=== PATIENT | female | born 1995 | race Caucasian/White ===

== ENCOUNTER 2016-08-09 15:17 | Emergency (ER) | payer SELFPAY ==
[~2016-08-09] VITALS: Ht 165.1 cm; Wt 79.0 kg
[~2016-08-09 15:17] MED LIST: AMOX875T20 PO; IBUP-238 PO; PRED20 PO
[2016-08-09 15:20] VITALS: BP 128/84; PULSE 93; RESP 16; TEMP 98.6; O2SAT 100
[2016-08-09] MEDS ORDERED: SODIUM CHLORIDE 0.9% FLUSH 5 ML FLUSH IVF PRN (16:00)
[2016-08-09 16:24] LABS: AUTOMATED NEUTROPHIL # 6.3 TH/MM3 (1.8-7.7); BASOPHIL # 0.4 TH/MM3 (0-0.2); BASOPHIL % 3.8 % (0.0-2.0); EOSINOPHIL # 0.3 TH/MM3 (0-0.4); EOSINOPHIL % 3.3 % (0.0-4.0); HEMATOCRIT 38.1 % (35.0-46.0); HEMO FLAGS DIFF FINAL; LYMPHOCYTE # 2.7 TH/MM3 (1.0-4.8); MEAN CELL VOLUME 88.8 FL (80.0-100.0); MEAN CORPUSCULAR HEMOGLOBIN 29.7 PG (27.0-34.0); MEAN CORPUSCULAR HGB CONC 33.4 % (32.0-36.0); MONO % 7.4 % (0.0-8.0); NEUT % 59.5 % (16.0-70.0); PLATELET COUNT 218 TH/MM3 (150-450); RED BLOOD COUNT 4.29 MIL/MM3 (4.00-5.30); RED CELL DISTRIBUTION WIDTH 12.1 % (11.6-17.2); WHITE BLOOD COUNT 10.5 TH/MM3 (4.0-11.0)
[2016-08-09 16:27] LABS: BLOOD, URINE NEG (NEG); GLUCOSE,URINE NEG (NEG); KETONE, URINE NEG (NEG); NITRITE,URINE NEG (NEG); PH, URINE 5.5 (5.0-8.5)
[2016-08-09 16:37] LABS: URINE COLOR STRAW (YELLW/STRAW)
[2016-08-09 16:39] LABS: SQUAMOUS EPITHELIAL CELL URINE 0-5 /hpf (0-5)
[2016-08-09 16:40] LABS: BACTERIA, URINE OCC /hpf
[2016-08-09 16:43] LABS: COMMENT (UR) CULT NOT INDICATED; CULTURE IF INDICATED CULT NOT INDICATED
[2016-08-09 16:50] VITALS: BP 123/68; PULSE 71; RESP 16; O2SAT 100
[2016-08-09 17:04] LABS: APTT (PATIENT) 25.2 SEC (24.3-30.1); INTERNATIONAL NORMALIZED RATIO 0.9 RATIO; PROTHROMBIN TIME - PATIENT 10.2 SEC (9.8-11.6)
[2016-08-09 17:19] LABS: BLOOD UREA NITROGEN 11 MG/DL (7-18)
[2016-08-09 17:20] LABS: ALKALINE PHOSPHATASE 48 U/L (45-117); GLOMERULAR FILTRATION RATE 84 ML/MIN (>89)
[2016-08-09 17:21] LABS: ALT (GPT) 44 U/L (10-53); ANION GAP 7 MEQ/L (5-15); AST (GOT) 22 U/L (15-37); BICARBONATE 26.8 MEQ/L (21.0-32.0); CHLORIDE 109 MEQ/L (98-107); SODIUM (NA) 143 MEQ/L (136-145); TOTAL BILIRUBIN ADULT 0.3 MG/DL (0.2-1.0)
--- NOTE | 2016-08-09 17:57 | PD ---
HPI Chief Complaint: GI Complaint Time Seen by Provider: 17:30 Travel History International Travel<30 days: No Contact w/Intl Traveler<30days: No Traveled to known affect area: No History of Present Illness HPI Patient is a 21-year-old white female who presents to emergency room with complaints of blood in stool for the past 6 months. Patient reports that she has been noticing increased blood in her stool with every bowel movement every day. Patient reports that sometimes her blood as dark, reports that sometimes her blood as bright red, reports that sometimes her bloody stools are associated with soft stools, reports that sometimes she may have hard stools with this. Patient reports that today, she noticed increased blood in her stools and reports that she felt a little lightheaded. Patient denied abdominal pain, denies nausea or vomiting. Patient reports that she was concerned that her hemoglobin was low, reports that she came to the emergency room for blood work. Reports "I just wanted to see what my hemoglobin was." PFSH Past Medical History Diminished Hearing: No Immunizations Current: Yes Tetanus Vaccination: Unknown ?: Not LMP: 3 WEEKS Family History Family History: Negative Social History Alcohol Use: No Tobacco Use: Yes (QUIT YESTERDAY) Substance Use: No Allergies-Medications (Allergen,Severity, Reaction): Coded Allergies: No Known Allergies (Verified , 08/09/16) Reported Meds & Prescriptions Reported Meds & Active Scripts Active No Active Prescriptions or Reported Medications Review of Systems General / Constitutional: No: Fever Eyes: No: Visual changes HENT: No: Headaches Cardiovascular: No: Chest Pain or Discomfort Respiratory: No: Shortness of Breath Gastrointestinal: Positive: Hematochezia, No: Nausea, Vomiting, Diarrhea, Abdominal Pain, Constipation, Changes in Bowel Habits Genitourinary: No: Dysuria Musculoskeletal: No: Pain Skin: No Rash Neurologic: No: Weakness Psychiatric: No: Depression Endocrine: No: Polydipsia Hematologic/Lymphatic: No: Easy Bruising Physical Exam Narrative GENERAL: No acute distress, nontoxic SKIN: Warm and dry. HEAD: Atraumatic. Normocephalic. EYES: Pupils equal and round. No scleral icterus. No injection or drainage. ENT: No nasal bleeding or discharge. Mucous membranes pink and moist. NECK: Trachea midline. No JVD. CARDIOVASCULAR: Regular rate and rhythm. No murmur appreciated. RESPIRATORY: No accessory muscle use. Clear to auscultation. Breath sounds equal bilaterally. GASTROINTESTINAL: Abdomen soft, non-tender, nondistended. Patient adamantly refuses rectal exam. MUSCULOSKELETAL: No obvious deformities. No clubbing. No cyanosis. No edema. NEUROLOGICAL: Awake and alert. No obvious cranial nerve deficits. Motor grossly within normal limits. Normal speech. PSYCHIATRIC: Appropriate mood and affect; insight and judgment normal. Data Data Last Documented VS Vital Signs Date Time Temp Pulse Resp B/P Pulse Ox O2 Delivery O2 Flow Rate FiO2 08/09/16 16:50 71 16 123/68 100 Room Air 08/09/16 15:20 98.6 Orders Complete Blood Count With Diff (08/09/16 15:56) Comprehensive Metabolic Panel (08/09/16 15:56) Prothrombin Time / Inr (Pt) (08/09/16 15:56) Act Partial Throm Time (Ptt) (08/09/16 15:56) Urinalysis - C+S If Indicated (08/09/16 15:56) Iv Access Insert/Monitor (08/09/16 15:56) Sodium Chloride 0.9% Flush (Ns Flush) (08/09/16 16:00) Ed Urine Pregnancytest Poc (08/09/16 15:56) Labs Laboratory Tests Test 08/09/16 08/09/16 15:40 16:10 Urine Collection Type Urine Color STRAW Urine Turbidity CLEAR Urine pH 5.5 Urine Specific [place] 1.005 Urine Protein NEG mg/dL Urine Glucose (UA) NEG mg/dL Urine Ketones NEG mg/dL Urine Occult Blood NEG Urine Nitrite NEG Urine Bilirubin NEG Urine Leukocyte Esterase NEG Urine Squamous Epithelial 0-5 /hpf Cells Urine Amorphous Sediment SMALL Urine Bacteria OCC /hpf Microscopic Urinalysis Comment CULT NOT INDICATED White Blood Count 10.5 TH/MM3 Red Blood Count 4.29 MIL/MM3 Hemoglobin 12.7 GM/DL Hematocrit 38.1 % Mean Corpuscular Volume 88.8 FL Mean Corpuscular Hemoglobin 29.7 PG Mean Corpuscular Hemoglobin 33.4 % Concent Red Cell Distribution Width 12.1 % Platelet Count 218 TH/MM3 Mean Platelet Volume 7.8 FL Neutrophils (%) (Auto) 59.5 % Lymphocytes (%) (Auto) 26.0 % Monocytes (%) (Auto) 7.4 % Eosinophils (%) (Auto) 3.3 % Basophils (%) (Auto) 3.8 % Neutrophils # (Auto) 6.3 TH/MM3 Lymphocytes # (Auto) 2.7 TH/MM3 Monocytes # (Auto) 0.8 TH/MM3 Eosinophils # (Auto) 0.3 TH/MM3 Basophils # (Auto) 0.4 TH/MM3 CBC Comment DIFF FINAL Differential Comment Prothrombin Time 10.2 SEC Prothromb Time International 0.9 RATIO Ratio Activated Partial 25.2 SEC Thromboplast Time Sodium Level 143 MEQ/L Potassium Level 4.0 MEQ/L Chloride Level 109 MEQ/L Carbon Dioxide Level 26.8 MEQ/L Anion Gap 7 MEQ/L Blood Urea Nitrogen 11 MG/DL Creatinine 0.85 MG/DL Estimat Glomerular Filtration 84 ML/MIN Rate Random Glucose 99 MG/DL Calcium Level 7.9 MG/DL Total Bilirubin 0.3 MG/DL Aspartate Amino Transf 22 U/L (AST/SGOT) Alanine Aminotransferase 44 U/L (ALT/SGPT) Alkaline Phosphatase 48 U/L Total Protein 7.0 GM/DL Albumin 3.4 GM/DL MDM Medical Decision Making Medical Screen Exam Complete: Yes Emergency Medical Condition: Yes Interpretation(s) Vital Signs Date Time Temp Pulse Resp B/P Pulse Ox O2 Delivery O2 Flow Rate FiO2 08/09/16 16:50 71 16 123/68 100 Room Air 08/09/16 15:20 98.6 93 16 128/84 100 CBC & BMP Diagram 08/09/16 16:10 Differential Diagnosis GI bleed, hemorrhoids, anemia, symptomatic anemia Narrative Course Patient is a 21-year-old female who presents to emergency room for evaluation of GI bleed. She reports that she has been noticing blood in her stool every day after a bowel movement for the past 6 months. Patient reports that sometimes her blood as dark, sometimes it is bright red, reports that sometimes she has hard stools and sometimes she has soft stools. Patient reports that she felt lightheaded and dizzy today and wanted to make sure her hemoglobin was normal. Patient with no complaints in the emergency room. Patient well-appearing. Vital Signs Date Time Temp Pulse Resp B/P Pulse Ox O2 Delivery O2 Flow Rate FiO2 08/09/16 16:50 71 16 123/68 100 Room Air 08/09/16 15:20 98.6 93 16 128/84 100 Patient with normal vital signs. CBC & BMP Diagram 08/09/16 16:10 Hemoglobin is 12.7, patient refuses rectal exam at this time. Patient understands that I cannot diagnose GI bleed without performing a rectal exam. Patient understands this, reports "I just want to have my hemoglobin checked to make sure I'm not anemic." Signs and symptoms of when to return to the emergency room was reviewed patient in detail. She reports that she will follow -up with a GI doctor and understands that if symptoms progress or worsen, she is to return to the emergency room. Diagnosis Primary Impression: GI bleed Qualified Code: K92.2 - Gastrointestinal hemorrhage, unspecified gastrointestinal hemorrhage type Patient Instructions: General Instructions Additional Instructions: Please follow-up with a paper processing machine helper as soon as possible Return to the emergency room as needed Please return to the emergency room if symptoms progress or worsen Scripts No Active Prescriptions or Reported Meds Disposition: 01 DISCHARGE HOME Condition: Stable Anya Mo DO Aug 09, 2016 17:57
== END 2016-08-09 18:04 | disposition home or self-care (01) ==
LOC: PHED 15:17
DX: Z87.891 Personal history of nicotine dependence (principal); K92.2 Gastrointestinal hemorrhage, unspecified
CPT/HCPCS: 80053; 81001; 84703; 85025; 85610; 85730; 99284

== ENCOUNTER 2017-03-29 07:11 | Emergency (ER) | payer SELFPAY ==
[~2017-03-29] VITALS: Ht 165.1 cm; Wt 81.0 kg
[2017-03-29 07:13] VITALS: BP 141/81; PULSE 81; RESP 16; TEMP 100.1; O2SAT 100
--- NOTE | 2017-03-29 07:26 | PD ---
HPI Chief Complaint: ENT Complaint Time Seen by Provider: 07:16 Travel History International Travel<30 days: No Contact w/Intl Traveler<30days: No Traveled to known affect area: No History of Present Illness HPI The patient is a 21-year-old female who presents to the emergency department for 1 day history of sore throat. The patient states her sore throat started yesterday, she now complains of subjective fevers, chills, sweats , and anterior cervical lymphadenopathy. She denies any rash, body aches, cough , nausea, vomiting, or abdominal pain. The patient has been taking over-the- counter TheraFlu with minimal relief of her symptoms. The patient denies any sick contacts at home. Symptoms are mild to moderate, there are no alleviating or exacerbating factors. PFSH Past Medical History Medical History: Denies Significant Hx Diminished Hearing: No Immunizations Current: Yes ?: Not LMP: 2 WEEKS Past Surgical History Surgical History: No Previous Surgery Social History Alcohol Use: No Tobacco Use: Yes (QUIT YESTERDAY) Substance Use: No Allergies-Medications (Allergen,Severity, Reaction): Coded Allergies: No Known Allergies (Verified , 03/29/17) Reported Meds & Prescriptions Reported Meds & Active Scripts Active No Active Prescriptions or Reported Medications Review of Systems General / Constitutional: Positive: Fever, Chills HENT: Positive: Sore Throat, Neck Pain Respiratory: No: Cough Gastrointestinal: No: Nausea, Vomiting, Abdominal Pain Musculoskeletal: No: Myalgias, Arthralgias Skin: No Rash Physical Exam Narrative GENERAL: Awake, alert, pleasant 21-year-old female appears her stated age and is in no acute respiratory distress. SKIN: Focused skin assessment warm, diaphoretic over the face.. HEAD: Atraumatic. Normocephalic. EYES: Pupils equal and round. No scleral icterus. No injection or drainage. ENT: No nasal bleeding or discharge. Oropharynx reveals enlarged and erythematous tonsils bilaterally with white exudate. NECK: Trachea midline. No JVD. Anterior cervical lymphadenopathy is mobile but tender. CARDIOVASCULAR: Regular rate and rhythm. No murmur appreciated. RESPIRATORY: No accessory muscle use. Clear to auscultation. Breath sounds equal bilaterally. MUSCULOSKELETAL: No obvious deformities. No clubbing. No cyanosis. No edema. NEUROLOGICAL: Awake and alert. No obvious cranial nerve deficits. Motor grossly within normal limits. Normal speech. PSYCHIATRIC: Appropriate mood and affect; insight and judgment normal. Data Data Last Documented VS Vital Signs Date Time Temp Pulse Resp B/P (MAP) Pulse Ox O2 Delivery O2 Flow Rate FiO2 03/29/17 07:13 100.1 81 16 141/81 (101) 100 Orders Orders Penicillin G Benzathine Inj (Bicillin L- (03/29/17 07:30) Dexamethasone Inj (Decadron Inj) (03/29/17 07:30) Ibuprofen (Advil) (03/29/17 07:30) MDM Medical Decision Making Medical Screen Exam Complete: Yes Emergency Medical Condition: Yes Medical Record Reviewed: Yes Differential Diagnosis Differential diagnosis includes strep pharyngitis, tonsillitis, mononucleosis, adenovirus, viral syndrome, URI, influenza. Narrative Course The patient's physical examination is consistent with exudative tonsillitis, most likely strep a pharyngitis versus mononucleosis. I do discussion with the patient regarding treatment of pen VK 4 times a day for 10 days versus one injection of Bicillin L-A with Decadron. The patient prefers an injection, therefore, the patient was administered Bicillin LA 1.2 million units IM and Decadron 8 mg IM. The patient was also administered ibuprofen 600 mg orally. She will be provided a work excuse for 2 days. She is advised to alternate Tylenol and Motrin for fever and plenty of fluids to stay hydrated. Diagnosis Primary Impression: Exudative tonsillitis Patient Instructions: General Instructions Additional Instructions: Alternate Tylenol and Motrin for pain and fever. Plenty of fluids to stay hydrated. Work excuse for 2 days. Follow-up with your primary physician. Return if symptoms worsen or progress. Med/Other Pt SpecificInfo: No Change to Meds Scripts No Active Prescriptions or Reported Meds Disposition: DISCHARGE HOME Condition: Stable Red Bailey MD Mar 29, 2017 07:26
[2017-03-29] MEDS ORDERED: PENICILLIN G BENZATHINE 1,200,000 UNITS/2 ML SYRINGE IM ONE (07:30)
[2017-03-29] MEDS ORDERED: DEXAMETHASONE SOD PHOS 4 MG/ML VIAL IM ONE (07:30)
[2017-03-29] MEDS ORDERED: IBUPROFEN 200 MG TAB PO ONE (07:30)
== END 2017-03-29 08:03 | disposition home or self-care (01) ==
LOC: PHED 07:11
DX: J03.90 Acute tonsillitis, unspecified (principal)
CPT/HCPCS: 96372; 99284; J0561; J1100

== ENCOUNTER 2017-12-21 14:37 | Emergency (ER) | payer BC ==
[~2017-12-21] VITALS: Ht 165.1 cm; Wt 82.0 kg
[2017-12-21 14:44] VITALS: BP 144/83; PULSE 74; RESP 16; TEMP 98.6; O2SAT 100
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
[2017-12-21 15:34] LABS: AUTOMATED NEUTROPHIL # 6.9 TH/MM3 (1.8-7.7); BASOPHIL % 0.4 % (0.0-2.0); EOSINOPHIL # 0.3 TH/MM3 (0-0.4); EOSINOPHIL % 3.4 % (0.0-4.0); HEMATOCRIT 41.5 % (35.0-46.0); HEMOGLOBIN 14.1 GM/DL (11.6-15.3); LYMPH % 24.4 % (9.0-44.0); LYMPHOCYTE # 2.5 TH/MM3 (1.0-4.8); MEAN CELL VOLUME 90.7 FL (80.0-100.0); MEAN CORPUSCULAR HEMOGLOBIN 30.9 PG (27.0-34.0); MEAN PLATELET VOLUME 8.2 FL (7.0-11.0); MONO % 5.8 % (0.0-8.0); MONOCYTE # 0.6 TH/MM3 (0-0.9); PLATELET COUNT 286 TH/MM3 (150-450); RED BLOOD COUNT 4.57 MIL/MM3 (4.00-5.30); WHITE BLOOD COUNT 10.4 TH/MM3 (4.0-11.0)
[2017-12-21 15:42] LABS: AMORPHOUS SEDIMENT, URINE FEW; BACTERIA, URINE FEW /hpf; BILIRUBIN, URINE NEG (NEG); BLOOD, URINE MOD (NEG); GLUCOSE,URINE NEG (NEG); KETONE, URINE NEG (NEG); MUCUS URINE FEW /lpf (OCC); NITRITE,URINE NEG (NEG); SQUAMOUS EPITHELIAL CELL URINE 13 /hpf (0-5); URINE COLOR YELLOW (YELLW/STRAW); URINE LEUKOCYTE ESTERASE LARGE (NEG); WHITE BLOOD CELL CLUMPS FEW
[2017-12-21 15:42] LABS: ALBUMIN 3.6 GM/DL (3.4-5.0); ALT (GPT) 27 U/L (10-53); AST (GOT) 19 U/L (15-37); BICARBONATE 26.2 MEQ/L (21.0-32.0); BLOOD UREA NITROGEN 7 MG/DL (7-18); CALCIUM 8.7 MG/DL (8.5-10.1); CHLORIDE 110 MEQ/L (98-107); CREATININE 0.91 MG/DL (0.50-1.00); GLOMERULAR FILTRATION RATE 77 ML/MIN (>89); GLUCOSE,RANDOM 94 MG/DL (74-106); SODIUM (NA) 143 MEQ/L (136-145)
[2017-12-21 15:52] LABS: ALKALINE PHOSPHATASE 55 U/L (45-117); TOTAL BILIRUBIN ADULT 0.3 MG/DL (0.2-1.0); TOTAL PROTEIN 7.3 GM/DL (6.4-8.2)
[2017-12-21] MEDS ORDERED: MACR100C2 PO (17:48)
[2017-12-21] MEDS ORDERED: NITROFURANTOIN MONOHYD MACROCR 100 MG CAP PO SCH (18:00)
[2017-12-21 18:14] VITALS: BP 132/72; PULSE 70; RESP 18; O2SAT 99
--- NOTE | 2017-12-21 18:27 | PD ---
History of Present Illness Chief Complaint: Psychiatric Symptoms Time Seen by Provider: 17:45 Travel History International Travel<30 Days: No Contact w/Intl Traveler<30days: No Known affected area: No Legal Status Legal Status: Harvey Act Harvey Act Signed By: Gigi Jamison Harvey Act Comment: officer elisa hill [id number] History of Present Illness: History of Present Illness HPI 22-year-old, single, female with no previous psychiatric history brought in under the Harvey act initiated by law enforcement with reports of suicidal ideation. The report alleges that the patient was arguing with her boyfriend when she reportedly held a gun to her head. 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 " I told him to leave me alone that I was going to go to [facility]". I just wanted him to leave me alone". She denies any previous suicide attempts. Does have a history of self injurious behavior but has not engaged in cutting in the past 1 and 1/2 year. EMR is reviewed. No previous contact with [facility]. Current toxicology is positive for amphetamines and cannabinoids. Patient currently with UTI. Patient is seen. She is alert and oriented. Calm and cooperative. Appropriate eye contact. Full affect. Speech is clear, logical of normal rate and tone. No mario or hypomania. No evidence of any hallucinations. I can elicit no delusions or paranoia. No significant objective clinical signs of depression. She denies suicidal or homicidal ideation, intent or plan. Remainder of review of system is negative. In terms of substance abuse she admits to using Adderall to help her focus at work. As well as smoking cannabis. Telephone call to her mother, Azul at [phone]. She has no concerns if her daughter is released. They live near each other and speak every day. PFSH Past Medical History Medical History: Denies Significant Hx Diminished Hearing: No Immunizations Current: Yes Tetanus Vaccination: Unknown Influenza Vaccination: No ?: Unknown Past Surgical History Surgical History: No Previous Surgery Psychiatric History Psychiatric History Hx Psychiatric Treatment: No previous psychiatric history. No previous suicide attempt. Patient has a history of cutting but last engaged in this behavior when a half years ago. She has been seeing a therapist by the name of Erinn through the employment assistance program. History of Inpatient Treatment: Yes Guns or firearms in home: No (They were taken by the police) Social History Born and raised in [place]. Patient is attending [employer] studying pharmacy. She works at the [employer]. She lives by herself. Was involved with a boyfriend for the past 4 months and broke up yesterday. Hx Alcohol Use: No Hx Tobacco Use: Yes (1 PPD) Hx Substance Use: Yes (MARIJUANA) Substance Use Type: Marijuana, Amphetamines-Stimulants Hx of Substance Use Treatment: No Family Psychiatric History Negative Allergies-Medications (Allergen,Severity, Reaction): Coded Allergies: No Known Allergies (Verified Adverse Reaction, Unknown, 12/21/17) Reported Meds & Prescriptions Reported Meds & Active Scripts Active Macrobid (Nitrofurantoin Monohydrate Macrocrystals) 100 Mg Capsule 100 Mg PO BID 7 Days Review of Systems Except as stated in HPI: all other systems reviewed are Neg Mental Status Examination Appearance: Appropriate (In hospital [facility]) Consciousness: Alert Orientation: x4 Motor Activity: Normal gait Speech: Unremarkable Language: Adequate Fund of Knowledge: Adequate Attention and Concentration: Adequate Memory: Unremarkable Mood: Appropriate Affect: Appropriate Thought Process & Associations: Intact, Logical, Goal directed Thought Content: Appropriate Hallucination Type: None Delusion Type: None Suicidal Ideation: No Suicidal Plan: No Suicidal Intention: No Homicidal Ideation: No Homicidal Plan: No Homicidal Intention: No Insight: Adequate Judgment: Adequate [facility] Medical Decision Making Medical Record Reviewed: Yes Assessment/Plan 22-year-old, single, female with no previous psychiatric history brought in under the Harvey act initiated by law enforcement with reports of suicidal ideation. The report alleges that the patient was arguing with her boyfriend when she reportedly held a gun to her head. 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 " I told him to leave me alone that I was going to go to [facility]". I just wanted him to leave me alone". She denies any previous suicide attempts. Patient was monitor and secure environment and presented no behavioral concerns and no suicidality. No significant symptoms of depression or anxiety are noted. The patient is future oriented with goals to complete her education and become a pharmacist. She has good family support and speaks to her mother every day. She is requesting to be discharge and does not present Criteria to remain under the Harvey act. She is provided psychoeducation. She will follow up with her outpatient therapist. The Harvey act as lifted. Psychiatrically stable for discharge from the ED. Orders Orders Complete Blood Count With Diff (12/21/17 14:49) Comprehensive Metabolic Panel (12/21/17 14:49) Thyroid Stimulating Hormone (12/21/17 14:49) Urinalysis - C+S If Indicated (12/21/17 14:49) Ed Urine Pregnancytest Poc (12/21/17 14:49) Psych Screen (12/21/17 14:49) Drug Screen, Random Urine (12/21/17 14:49) Alcohol (Ethanol) (12/21/17 14:49) Urine Culture (12/21/17 15:10) Nitrofurantoin Monohyd Macrocr (Macrobid (12/21/17 18:00) Diet Regular Basic (12/21/17 Dinner) Results Vital Signs Date Time Temp Pulse Resp B/P (MAP) Pulse Ox O2 Delivery O2 Flow Rate FiO2 12/21/17 18:14 70 18 132/72 (92) 99 Room Air 12/21/17 14:44 98.6 74 16 144/83 (103) 100 Laboratory Tests Test 12/21/17 15:05 12/21/17 15:10 White Blood Count 10.4 Red Blood Count 4.57 Hemoglobin 14.1 Hematocrit 41.5 Mean Corpuscular Volume 90.7 Mean Corpuscular Hemoglobin 30.9 Mean Corpuscular Hemoglobin Concent 34.0 Red Cell Distribution Width 13.0 Platelet Count 286 Mean Platelet Volume 8.2 Neutrophils (%) (Auto) 66.0 Lymphocytes (%) (Auto) 24.4 Monocytes (%) (Auto) 5.8 Eosinophils (%) (Auto) 3.4 Basophils (%) (Auto) 0.4 Neutrophils # (Auto) 6.9 Lymphocytes # (Auto) 2.5 Monocytes # (Auto) 0.6 Eosinophils # (Auto) 0.3 Basophils # (Auto) 0.0 CBC Comment DIFF FINAL Differential Comment Blood Urea Nitrogen 7 Creatinine 0.91 Random Glucose 94 Total Protein 7.3 Albumin 3.6 Calcium Level 8.7 Alkaline Phosphatase 55 Aspartate Amino Transf (AST/SGOT) 19 Alanine Aminotransferase (ALT/SGPT) 27 Total Bilirubin 0.3 Sodium Level 143 Potassium Level 4.0 Chloride Level 110 Carbon Dioxide Level 26.2 Anion Gap 7 Estimat Glomerular Filtration Rate 77 Thyroid Stimulating Hormone 3rd Gen 0.545 Ethyl Alcohol Level LESS THAN 3 Urine Color YELLOW Urine Turbidity CLOUDY Urine pH 7.0 Urine Specific [place] 1.004 Urine Protein NEG Urine Glucose (UA) NEG Urine Ketones NEG Urine Occult Blood MOD Urine Nitrite NEG Urine Bilirubin NEG Urine Urobilinogen LESS THAN 2 Urine Leukocyte Esterase LARGE Urine RBC 6 Urine WBC 77 Urine WBC Clumps FEW Urine Squamous Epithelial Cells 13 Urine Amorphous Sediment FEW Urine Bacteria FEW Urine Mucus FEW Microscopic Urinalysis Comment CULTURE INDICATED Urine Opiates Screen NEG Urine Barbiturates Screen NEG Urine Amphetamines Screen POS Urine Benzodiazepines Screen POS Urine Cocaine Screen NEG Urine Cannabinoids Screen POS Date/Time Source Procedure Growth Status 12/21/17 15:10 Urine Clean Catch Urine Culture Pending Received Diagnosis Primary Impression: Urinary tract infection Additional Impression: Adjustment disorder Psychiatrically Cleared: Yes Prescriptions Nitrofurantoin Monohydrate Macrocrystals (Macrobid) 100 Mg Capsule 100 MG PO BID for Infection for 7 Days, #14 CAP 0 Refills Prov: Mali Flores MD 12/21/17 Disposition: 01 DISCHARGE HOME Condition: Stable Problem Qualifiers Primary Impression: Urinary tract infection Qualified Codes: N30.00 - Acute cystitis without hematuria Additional Impression: Adjustment disorder Qualified Codes: F43.25 - Adjustment disorder with mixed disturbance of emotions and conduct Ashli Wilson Dec 21, 2017 18:26
--- NOTE | 2017-12-21 18:58 | PD ---
Physical Exam Date Seen by Provider: Dec 21, 2017 Time Seen by Provider: 18:57 Narrative 22-year-old female previously Harvey acted and medically clear for psychiatric evaluation has been seen by the psychiatric staff and deemed to be psychiatric stable for discharge at this time. Patient is noted to have a urinary tract infection during her workup. She will be treated with Macrodantin 100 mg twice daily for 7 days. Urine culture is pending. Psychiatric follow-up will be based on psychiatric note. Data Data Last Documented VS Vital Signs Date Time Temp Pulse Resp B/P (MAP) Pulse Ox O2 Delivery O2 Flow Rate FiO2 12/21/17 18:14 70 18 132/72 (92) 99 Room Air 12/21/17 14:44 98.6 Orders Orders Complete Blood Count With Diff (12/21/17 14:49) Comprehensive Metabolic Panel (12/21/17 14:49) Thyroid Stimulating Hormone (12/21/17 14:49) Urinalysis - C+S If Indicated (12/21/17 14:49) Ed Urine Pregnancytest Poc (12/21/17 14:49) Psych Screen (12/21/17 14:49) Drug Screen, Random Urine (12/21/17 14:49) Alcohol (Ethanol) (12/21/17 14:49) Urine Culture (12/21/17 15:10) Nitrofurantoin Monohyd Macrocr (Macrobid (12/21/17 18:00) Diet Regular Basic (12/21/17 Dinner) Ed Discharge Order (12/21/17 18:56) Labs Laboratory Tests Test 12/21/17 15:05 12/21/17 15:10 White Blood Count 10.4 TH/MM3 Red Blood Count 4.57 MIL/MM3 Hemoglobin 14.1 GM/DL Hematocrit 41.5 % Mean Corpuscular Volume 90.7 FL Mean Corpuscular Hemoglobin 30.9 PG Mean Corpuscular Hemoglobin Concent 34.0 % Red Cell Distribution Width 13.0 % Platelet Count 286 TH/MM3 Mean Platelet Volume 8.2 FL Neutrophils (%) (Auto) 66.0 % Lymphocytes (%) (Auto) 24.4 % Monocytes (%) (Auto) 5.8 % Eosinophils (%) (Auto) 3.4 % Basophils (%) (Auto) 0.4 % Neutrophils # (Auto) 6.9 TH/MM3 Lymphocytes # (Auto) 2.5 TH/MM3 Monocytes # (Auto) 0.6 TH/MM3 Eosinophils # (Auto) 0.3 TH/MM3 Basophils # (Auto) 0.0 TH/MM3 CBC Comment DIFF FINAL Differential Comment Blood Urea Nitrogen 7 MG/DL Creatinine 0.91 MG/DL Random Glucose 94 MG/DL Total Protein 7.3 GM/DL Albumin 3.6 GM/DL Calcium Level 8.7 MG/DL Alkaline Phosphatase 55 U/L Aspartate Amino Transf (AST/SGOT) 19 U/L Alanine Aminotransferase (ALT/SGPT) 27 U/L Total Bilirubin 0.3 MG/DL Sodium Level 143 MEQ/L Potassium Level 4.0 MEQ/L Chloride Level 110 MEQ/L Carbon Dioxide Level 26.2 MEQ/L Anion Gap 7 MEQ/L Estimat Glomerular Filtration Rate 77 ML/MIN Thyroid Stimulating Hormone 3rd Gen 0.545 uIU/ML Ethyl Alcohol Level LESS THAN 3 MG/DL Urine Color YELLOW Urine Turbidity CLOUDY Urine pH 7.0 Urine Specific [place] 1.004 Urine Protein NEG mg/dL Urine Glucose (UA) NEG mg/dL Urine Ketones NEG mg/dL Urine Occult Blood MOD Urine Nitrite NEG Urine Bilirubin NEG Urine Urobilinogen LESS THAN 2 mg/dL Urine Leukocyte Esterase LARGE Urine RBC 6 /hpf Urine WBC 77 /hpf Urine WBC Clumps FEW Urine Squamous Epithelial Cells 13 /hpf Urine Amorphous Sediment FEW Urine Bacteria FEW /hpf Urine Mucus FEW /lpf Microscopic Urinalysis Comment CULTURE INDICATED Urine Opiates Screen NEG Urine Barbiturates Screen NEG Urine Amphetamines Screen POS Urine Benzodiazepines Screen POS Urine Cocaine Screen NEG Urine Cannabinoids Screen POS MDM Medical Record Reviewed: Yes Supervised Visit with JERAMY: Yes Narrative Course 22-year-old female previously Harvey acted and medically clear for psychiatric evaluation has been seen by the psychiatric staff and deemed to be psychiatric stable for discharge at this time. Patient is noted to have a urinary tract infection during her workup. She will be treated with Macrodantin 100 mg twice daily for 7 days. Urine culture is pending. Psychiatric follow-up will be based on psychiatric note. Diagnosis Primary Impression: Urinary tract infection Qualified Codes: N30.00 - Acute cystitis without hematuria Additional Impression: Adjustment disorder Qualified Codes: F43.25 - Adjustment disorder with mixed disturbance of emotions and conduct Patient Instructions: General Instructions Departure Forms: Tests/Procedures Scripts Nitrofurantoin Monohydrate Macrocrystals (Macrobid) 100 Mg Capsule 100 MG PO BID for Infection for 7 Days, #14 CAP 0 Refills Prov: Mali Flores MD 12/21/17 Disposition: 01 DISCHARGE HOME Condition: Stable Natanael Bobo Dec 21, 2017 18:58
== END 2017-12-21 19:06 | disposition home or self-care (01) ==
LOC: NEPJ 14:37
DX: N30.00 Acute cystitis without hematuria (principal); F43.25 Adjustment disorder with mixed disturbance of emotions and conduct; F12.90 Cannabis use, unspecified, uncomplicated; F17.200 Nicotine dependence, unspecified, uncomplicated
CPT/HCPCS: 80053; 80307; 81001; 84443; 84703; 85025; 87086; 99284